=== PATIENT | male | born 1965 | race Caucasian/White ===

== ENCOUNTER 2021-12-03 10:26 | Emergency (ER) | payer BC ==
[~2021-12-03] VITALS: Ht 182.9 cm; Wt 104.3 kg
[2021-12-03] MEDS ORDERED: SIMVASTATIN20 MG PO (10:54)
[2021-12-03] MEDS ORDERED: BIKTARVY 50-201 EACH (10:54)
[2021-12-03] MEDS ORDERED: TAMSULOSIN HCL0.4 MG PO (10:54)
[2021-12-03] MEDS ORDERED: KETO10TA2 PO (16:20)
[2021-12-03] MEDS ORDERED: TAMS0.4C PO (16:20)
[2021-12-03] MEDS ORDERED: CIPRO500 MG PO (16:20)
== END 2021-12-03 17:20 | disposition home or self-care (01) ==
LOC: ER 10:26
DX: R10.32 Left lower quadrant pain (principal)